=== PATIENT | male | born 1955 | race Caucasian/White ===

== ENCOUNTER 2019-07-21 21:26 | Emergency (ER) | payer SELFPAY ==
[~2019-07-21] VITALS: Ht 177.8 cm; Wt 95.3 kg
[2019-07-21 21:30] VITALS: BP_SYST 140
--- NOTE | 2019-07-21 21:30 | NUR ---
Patient to [facility] Chair for evaluation. Side rails up.
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
--- NOTE | 2019-07-21 22:31 | NUR ---
ER at bedside examining patient.
[2019-07-21] MEDS ORDERED: INSULIN REGULAR, HUMAN 10 UNITS/0.1 ML INJ SUBCUT ONE (23:00)
[2019-07-21] MEDS ORDERED: risperiDONE 0.25 MG TABLET (RisperDAL) PO ONE (23:45)
[2019-07-21 23:58] VITALS: BP_SYST 136
--- NOTE | 2019-07-21 23:58 | NUR ---
Written and verbal consent obtained from patient for blood alcohol, name and verified by patient. Disinfected patient's skin with iodine that did not contain alcohol or other volatile organic compound. Collected the blood from the subject named by venipuncture, in the presence of Officer Alejandro. Used a sterile, dry hypodermic needle and dry vacuum blood collection. Two dry vacuum blood collection was supplied by the officer named above. Withdrew a specimen of blood from L AC of the subject named above. Inverted both blood tubes several times to ensure that the preservative and anticoagulant were thoroughly mixed in the blood specimen. I initialed both blood tube labels for identification. The labeled blood tubes were handed directly to the Officer named above. The blood tubes stopper remained in place while I had possession of the blood tubes. The Officer placed tubes into envelope and sealed it in my presence. Envelope initialed by myself and Officer named above. Patient tolerated well, bandage applied, and bleeding controlled.
--- NOTE | 2019-07-21 23:58 | NUR ---
Patient given written and verbal discharge instructions and verbalizes understanding. ER MD discussed with patient the results and treatment provided. Patient in stable condition. ID arm band removed. Pt discharged in custody of [facility]. No Rx given. Patient educated on pain management and to follow up with PMD. Pain Scale 0/10. Opportunity for questions provided and answered. Medication side effect fact sheet provided.
[2019-07-22] MEDS ORDERED: TERAZOSIN HCL 1 MG CAPSULE (HYTRIN) ONE (00:12)
[2019-07-22] MEDS ORDERED: TERAZOSIN HCL 1 MG CAPSULE (HYTRIN) PO SCH (21:00)
== END 2019-07-21 23:58 ==
LOC: SED 21:26
DX: Z04.1 Encounter for examination and observation following transport accident (principal); E11.29 Type 2 diabetes mellitus with other diabetic kidney complication; N28.9 Disorder of kidney and ureter, unspecified; N40.0 Benign prostatic hyperplasia without lower urinary tract symptoms; I10 Essential (primary) hypertension; F17.290 Nicotine dependence, other tobacco product, uncomplicated; Z90.49 Acquired absence of other specified parts of digestive tract; V49.49XA Driver injured in collision with other motor vehicles in traffic accident, initial encounter; Y93.89 Activity, other specified; Y92.413 State road as the place of occurrence of the external cause; Y99.8 Other external cause status
CPT/HCPCS: 82962; 96372; 99283; J1815